=== PATIENT | male | born 1995 | race Hispanic/Latino ===

== ENCOUNTER 2018-08-27 19:09 | Emergency (ER) | payer OTHER ==
[2018-08-27] MEDS ORDERED: BUPIVACAINE/PF 0.5% 30ML VIAL ONE (19:36)
[2018-08-27] MEDS ORDERED: LIDOCAINE HCL 1% 20 ML VIAL ONE (19:36)
== END 2018-08-27 20:25 | disposition home or self-care (01) ==
LOC: EDH 19:09
DX: S61.112A Laceration without foreign body of left thumb with damage to nail, initial encounter (principal); Z72.0 Tobacco use; X58.XXXA Exposure to other specified factors, initial encounter; Y93.89 Activity, other specified; Y92.098 Other place in other non-institutional residence as the place of occurrence of the external cause; Y99.8 Other external cause status
CPT/HCPCS: 12002; 73140; 99284; J3490